=== PATIENT | female | born 1990 | race Caucasian/White ===

== ENCOUNTER 2021-08-30 00:47 | Emergency (ER) | payer OTHER ==
[~2021-08-30] VITALS: Ht 162 cm; Wt 108.0 kg
[2021-08-30 00:58] VITALS: BP 147/96
[2021-08-30] MEDS ORDERED: ONDANSETRON 4 MG (ZOFRAN) ORAL DISSOLVE TAB SL STA (01:05)
--- NOTE | 2021-08-30 01:05 | ED GI ---
General Stated Complaint: NAUSEA/VOMITING Source of Information: Patient Exam Limitations: No Limitations History of Present Illness Date Seen by Provider: Aug 30, 2021 Time Seen by Provider: 00:57 Initial Comments 30yoF with no significant PMH coming in due to several days of nonbloody nonbilious vomiting associated with nausea. Last vomited about an hour prior to arrival. Has associated sore throat, mild cough, at times feels short of breath but not currently. She says she does have some chest discomfort every once while which is nonconstant. Had COVID just under a month ago and her symptoms were mild. She denies any fever, abdominal pain, diarrhea, dysuria, headache, rash, or any other concerns. LMP was under 1 month ago. Allergies and Home Medications Allergies Coded Allergies: No Known Drug Allergies (Unverified , 08/30/21) Patient Home Medication List Home Medication List Reviewed: Yes Review of Systems Review of Systems Constitutional: No chills, No fever EENTM: No Blurred Vision Respiratory: Cough, Shortness of Air Cardiovascular: Chest Pain Gastrointestinal: Denies Abdominal Pain, Denies Diarrhea; Nausea, Vomiting Genitourinary: Denies Burning Musculoskeletal: no symptoms reported Skin: no symptoms reported Psychiatric/Neurological: No Symptoms Reported Endocrine: No Symptoms Reported Hematologic/Lymphatic: No Symptoms Reported All Other Systems Reviewed Negative Unless Noted: Yes Past Famvrxm-Vhmmeg-Qfdzye Hx Patient Social History Tobacco Use?: No Past Medical History Surgeries: Yes Section Physical Exam Vital Signs Vital Signs - First Documented 08/30/21 00:58 Temp 36.5 Pulse 104 Resp 22 B/P (MAP) 147/96 (113) Pulse Ox 97 O2 Delivery Room Air Capillary Refill : Height/Weight/BMI Height: '" Weight: lbs. oz. kg; BMI Method: General Appearance: WD/WN, no apparent distress HEENT: PERRL/EOMI, normal ENT inspection, pharynx normal Neck: non-tender, full range of motion, supple, normal inspection Respiratory: chest non-tender, lungs clear, normal breath sounds, no respiratory distress, no accessory muscle use Cardiovascular: regular rate, rhythm, no edema, no murmur Gastrointestinal: normal bowel sounds, non tender, soft; No distended, No guarding, No rebound Extremities: normal range of motion, non-tender, normal inspection, no pedal edema, no calf tenderness, normal capillary refill Back: normal inspection, no CVA tenderness, no vertebral tenderness Neurologic/Psychiatric: no motor/sensory deficits, alert, normal mood/affect Skin: normal color, warm/dry Lymphatic: no adenopathy Progress/Results/Core Measures Results/Orders Lab Results Laboratory Tests Test 08/30/21 01:07 08/30/21 01:30 Range/Units Influenza Type A Antigen NEGATIVE NEGATIVE Influenza Type B Antigen NEGATIVE NEGATIVE White Blood Count 8.7 4.3-11.0 10^3/uL Red Blood Count 4.69 3.80-5.11 10^6/uL Hemoglobin 11.9 11.5-16.0 g/dL Hematocrit 38 35-52 % Mean Corpuscular Volume 82 80-99 fL Mean Corpuscular Hemoglobin 25 25-34 pg Mean Corpuscular Hemoglobin Concent 31 L 32-36 g/dL Red Cell Distribution Width 14.9 H 10.0-14.5 % Platelet Count 362 130-400 10^3/uL Mean Platelet Volume 8.7 L 9.0-12.2 fL Neutrophils (%) (Auto) 66 42-75 % Lymphocytes (%) (Auto) 25 12-44 % Monocytes (%) (Auto) 10 0-12 % Eosinophils (%) (Auto) 0 0-10 % Basophils (%) (Auto) 0 0-10 % Neutrophils # (Auto) 5.7 1.8-7.8 X 10^3 Lymphocytes # (Auto) 2.1 1.0-4.0 X 10^3 Monocytes # (Auto) 0.8 0.0-1.0 X 10^3 Eosinophils # (Auto) 0.0 0.0-0.3 10^3/uL Basophils # (Auto) 0.0 0.0-0.1 10^3/uL Prothrombin Time 13.6 12.2-14.7 SEC INR Comment 1.0 0.8-1.4 Activated Partial Thromboplast Time 38 H 24-35 SEC D-Dimer 2.12 H 0.00-0.49 UG/ML Sodium Level 137 135-145 MMOL/L Potassium Level 3.0 L 3.6-5.0 MMOL/L Chloride Level 96 L 98-107 MMOL/L Carbon Dioxide Level 23 21-32 MMOL/L Anion Gap 18 H 5-14 MMOL/L Blood Urea Nitrogen 8 7-18 MG/DL Creatinine 0.52 L 0.60-1.30 MG/DL Estimat Glomerular Filtration Rate 129 BUN/Creatinine Ratio 15 Glucose Level 118 H 70-105 MG/DL Calcium Level 9.5 8.5-10.1 MG/DL Corrected Calcium 9.3 8.5-10.1 MG/DL Total Bilirubin 0.3 0.1-1.0 MG/DL Aspartate Amino Transf (AST/SGOT) 30 5-34 U/L Alanine Aminotransferase (ALT/SGPT) 46 0-55 U/L Alkaline Phosphatase 118 40-136 U/L Troponin I < 0.30 <0.30 NG/ML Total Protein 8.7 H 6.4-8.2 GM/DL Albumin 4.3 3.2-4.5 GM/DL Serum Test, Qualitative NEGATIVE NEGATIVE My Orders Orders - MENA REBOLLEDO MD Influenza A & B Antigens (08/30/21 01:05) Ekg Tracing (08/30/21 01:05) Chest 1 View Ap/Pa Only (08/30/21 01:05) Ondansetron Oral Dissolve Tab (Zofran (08/30/21 01:05) Cbc With Automated Diff (08/30/21 01:20) Comprehensive Metabolic Panel (08/30/21 01:20) Fibrin Degradation Products (08/30/21 01:20) Protime With Inr (08/30/21 01:20) Partial Thromboplastin Time (08/30/21 01:20) Troponin I Fs (08/30/21 01:20) Hcg,Qualitative Serum (08/30/21 01:26) Ct Angio Chest W (08/30/21 02:00) Iohexol Injection (Omnipaque 350 Mg/Ml 1 (08/30/21 02:15) Received Contrast (Hold Metformin- Contr (08/30/21 02:15) Sodium Chloride Flush (Catheter Flush Sy (08/30/21 02:15) Ns (Ivpb) (Sodium Chloride 0.9% Ivpb Bag (08/30/21 02:15) Medications Given in ED Current Medications Medications Dose Ordered Sig/Judd Route Start Time Stop Time Status Last Admin Dose Admin Iohexol 150 ml ONCE ONCE IV 08/30/21 02:15 08/30/21 02:16 DC 08/30/21 02:31 96 ML Sodium Chloride 10 ml NEEDED PRN IV 08/30/21 02:15 08/30/21 02:32 10 ML Sodium Chloride 100 ml ONCE ONCE IV 08/30/21 02:15 08/30/21 02:16 DC 08/30/21 02:32 100 ML Vital Signs/I&O 08/30/21 00:58 Temp 36.5 Pulse 104 Resp 22 B/P (MAP) 147/96 (113) Pulse Ox 97 O2 Delivery Room Air Progress Progress Note : Progress Note 30-year-old female with above history coming in due to mostly nausea, vomiting, and chest pain. ABCs were intact and vitals were stable on presentation although she was mildly tachycardic initially around 100. EKG obtained with some T wave inversions but otherwise no ST changes. She would be lower risk for a PE per Boyd criteria, however she does take letrozole which puts her at slightly higher risk. D-dimer ordered which was positive. CTA chest and ordered which was negative for PE. Other labs significant for negative troponin, negative flu test, and negative test. She recently got over COVID so unlikely related to this. Likely has some other GI bug at this point. She is well-appearing and received Zofran followed by oral fluids which she tolerated well. I believe she is stable for discharge with outpatient follow- up. She was sent home with strict return precautions. Initial ECG Impression Date: Aug 30, 2021 Initial ECG Impression Time: 01:08 Initial ECG Rate: 99 Initial ECG Rhythm: Normal Sinus Comment Narrow QRS, normal axis, T wave inversion in lead III, V1, V2, V3 with flattening and V4 through V6 which is nonspecific, no ST changes Diagnostic Imaging Diagonstic Imaging: Xray (chest), CT (CTA chest) Comments No obvious pneumonia, pneumothorax, pleural effusion, normal cardiac silhouette on my interpretation CTA chest with no PE or other abnormality per stat rad Reviewed: Reviewed [facility] Study Departure Impression Primary Impression: Nausea & vomiting Qualified Codes: R11.2 - Nausea with vomiting, unspecified Additional Impression: Chest pain Qualified Codes: R07.9 - Chest pain, unspecified Disposition: 01 HOME, SELF-CARE Condition: Stable Departure-Patient Inst. Decision time for Depature: 03:11 Referrals: NO,LOCAL PHYSICIAN (PCP/Family) Primary Care Physician Patient Instructions: Chest Pain That Is Not Caused by the Heart (DC), Nausea and Vomiting, Adult ED Add. Discharge Instructions: Your labs are reassuring other than your potassium was a little low. Eat some potassium rich foods for the next couple of days. Your flu test was negative. Your CT of your chest was normal including no blood clot. You likely do have a GI bug which will take some time to pass. Scripts Ondansetron (Ondansetron Odt) 4 Mg Tab.rapdis 4 MG PO Q6H PRN for NAUSEA/VOMITING-1ST LINE for 5 Days, #20 TAB Prov: MENA REBOLLEDO MD 08/30/21 MENA REBOLLEDO MD Aug 30, 2021 01:05
[2021-08-30 01:40] LABS: BASOPHILS % (AUTO) 0 % (0-10); EOSINOPHILS % (AUTO) 0 % (0-10); HEMATOCRIT 38 % (35-52); HEMOGLOBIN 11.9 g/dL (11.5-16.0); LYMPHOCYTES % (AUTO) 25 % (12-44); MEAN CORPUSCULAR HEMOGLOBIN 25 pg (25-34); MEAN CORPUSCULAR HGB CONC 31 g/dL (32-36); MEAN CORPUSCULAR VOLUME 82 fL (80-99); MEAN PLATELET VOLUME 8.7 fL (9.0-12.2); MONOCYTES % (AUTO) 10 % (0-12); NEUTROPHILS # (AUTO) 5.7 X 10^3 (1.8-7.8); NEUTROPHILS % (AUTO) 66 % (42-75); PLATELET COUNT 362 10^3/uL (130-400); WHITE BLOOD COUNT 8.7 10^3/uL (4.3-11.0)
[2021-08-30 01:41] LABS: LYMPHOCYTES # (AUTO) 2.1 X 10^3 (1.0-4.0); MONOCYTES # (AUTO) 0.8 X 10^3 (0.0-1.0)
[2021-08-30 01:52] LABS: PROTHROMBIN TIME PATIENT 13.6 SEC (12.2-14.7)
[2021-08-30 01:56] LABS: ALANINE AMINOTRANSFERASE 46 U/L (0-55); ALKALINE PHOSPHATASE 118 U/L (40-136); BILIRUBIN,TOTAL 0.3 MG/DL (0.1-1.0); BUN/CREATININE RATIO 15; CALCIUM 9.5 MG/DL (8.5-10.1); CARBON DIOXIDE 23 MMOL/L (21-32); CHLORIDE 96 MMOL/L (98-107); CREATININE SERUM 0.52 MG/DL (0.60-1.30); GFR ESTIMATED 129; GLUCOSE 118 MG/DL (70-105); SODIUM 137 MMOL/L (135-145)
[2021-08-30 01:57] LABS: ALBUMIN 4.3 GM/DL (3.2-4.5); FIBRIN DEGRADATION PRODUCTS 2.12 UG/ML (0.00-0.49); TOTAL PROTEIN 8.7 GM/DL (6.4-8.2)
[2021-08-30] MEDS ORDERED: HOLD METFORMIN - RECEIVED CONTRAST 20 ML VIAL IV SCH (02:15)
[2021-08-30] MEDS ORDERED: NS 100 ML (IVPB) BAG IV ONE (02:15)
[2021-08-30] MEDS ORDERED: CATHETER FLUSH 10 ML SYR IV PRN (02:15)
[2021-08-30] MEDS ORDERED: IOHEXOL 350 MG/ML 150 ML (OMNIPAQUE 350) VIAL IV ONE (02:15)
[2021-08-30] MEDS ORDERED: ONDANSETRON 4 MG (ZOFRAN) ORAL DISSOLVE TAB PO STA (03:13)
[2021-08-30] MEDS ORDERED: ONDA4TAB11 PO (03:13)
[2021-08-30] MEDS ORDERED: KCL 20 MEQ TAB (K-DUR) PO ONE (03:15)
--- NOTE | 2021-08-30 06:57 | Diagnostic Imaging Report ---
EXAMINATION: Chest radiograph, portable AP view. DATE: 08/30/2021 1:24 AM INDICATION: 30-year-old female, chest pain. COMPARISON: None. FINDINGS: Heart size and mediastinal contours are unremarkable. There is no identified pneumothorax. There is no large pleural effusion. There is no identified focal airspace consolidation. IMPRESSION: No identified acute cardiopulmonary abnormality. Dictated by: Dictated on workstation # [id number]
--- NOTE | 2021-08-30 06:59 | Diagnostic Imaging Report ---
PROCEDURE: CT angiography of the chest with contrast. TECHNIQUE: Multiple contiguous axial images were obtained through the chest after uneventful bolus administration of intravenous contrast. 3D reconstructed CTA MIP acquisitions were also performed. Auto Exposure Controls were utilized during the CT exam to meet ALARA standards for radiation dose reduction. INDICATION: Chest pain. Positive D-dimer. COMPARISON: None FINDINGS: There is no intraluminal filling defect within the pulmonary arteries to the 1st subsegmental division. Thoracic aorta is normal in course and caliber. By NASCET criteria, there is no focal significant stenosis. Additionally, there is no evidence of dissection or aneurysm. Heart size is within normal limits. There is no large pericardial effusion. No pathologically enlarged or morphologically abnormal adenopathy is seen within the mediastinum, andreina, nor axilla. Lung bui are clear. There is no focal consolidation, large effusion, no pneumothorax. No suspicious pulmonary nodules or masses are seen. Osseous structures show no acute abnormalities. Included portions of the upper abdomen are unremarkable as well. IMPRESSION: 1. No pulmonary embolus to the 1st subsegmental division of pulmonary arteries. 2. No other acute cardiopulmonary process. Dictated by: Dictated on workstation # [id number]
== END 2021-08-30 03:25 | disposition home or self-care (01) ==
LOC: ER FS 00:51
DX: R11.2 Nausea with vomiting, unspecified (principal); R07.9 Chest pain, unspecified
CPT/HCPCS: 36415; 71045; 71275; 80053; 84484; 84703; 85025; 85379; 85610; 85730; 87804; 93005